=== PATIENT | female | born 1980 | race American Indian/Alaskan Native ===

== ENCOUNTER 2016-10-30 08:49 | Emergency (ER) | payer SELFPAY ==
[2016-10-30] MEDS ORDERED: CATAPRES PO ONE (09:30)
--- NOTE | 2016-10-30 09:36 | Emergency Department Report ---
Entered by KALA RODRIGUEZ, acting as scribe for BERTRAND CHARLES NP. Chief Complaint: Skin/Abscess/Foreign Body Stated Complaint: KNOT IN NAVEL / RASH Time Seen by Provider: 10/30/16 09:26 - HPI History of Present Illness: 36 year old female who is non-toxic appearing and in no acute distress presents with c/o umbilical area "knot" for 2 weeks. PMHx HTN, reports non-compliance with Rx. Denies abdominal pain, n/v/d, chest pain, shortness of breath, headache. - ROS Review of Systems: Reports knot in umbilical area. Denies abdominal pain, n/v/d, chest pain, shortness of breath, headache. - Exam Vital Signs: Vital Signs 10/30/16 09:17 Temperature 98.2 F Pulse Rate 75 Respiratory 20 Rate Blood Pressure 190/118 O2 Sat by Pulse 100 Oximetry Physical Exam: Constitutional: Non toxic appearing, NAD. Cardiovascular: normal rate and rythym with normal S1/S2 sounds. Respiratory: No respiratory distress. Lung sounds clear to auscultation bilaterally. Abdomen: 0.5 cm nodule in right umbilical area with no tenderness. Abdomen is non-distended, soft with no tenderness to palpation in all quadrants. MSE screening note: Focused history and physical exam performed. Due to findings the following was ordered: CBC, serum hGC, UA, Catapres 0.1 mg PO Instructed nurses to follow up with blood pressure in triage. ED Disposition for MSE Condition: Stable This documentation as recorded by the scribe,KALA RODRIGUEZ,accurately reflects the service I personally performed and the decisions made by MELVIN york MARTIN, GERA.
[2016-10-30 09:51] LABS: Basophils % (Auto) 0.5 % (0.0-1.8); Eosinophils % (Auto) 0.8 % (0.0-4.3); Hematocrit 39.6 % (30.3-42.9); Hemoglobin 12.9 gm/dl (10.1-14.3); Mean Corpuscular HGB Conc 32 % (30-34); Mean Corpuscular Hemoglobin 27 pg (28-32); Mean Corpuscular Volume 82 fl (79-97); Platelet Count 177 K/mm3 (140-440); Red Blood Count 4.85 M/mm3 (3.65-5.03); Red Cell Distribution Width 15.2 % (13.2-15.2); White Blood Count 9.7 K/mm3 (4.5-11.0)
--- NOTE | 2016-10-30 11:49 | Emergency Department Report ---
HPI - General Chief Complaint: Skin/Abscess/Foreign Body Time Seen by Provider: 10/30/16 11:33 - HPI HPI: Room 3 The patient is a 36-year-old female presenting with a chief complaint of abdominal "knot" and vaginal itching. The patient states 1 week ago she developed sharp pain and her umbilicus and felt a "knot" in that region. The patient also states for the past 2-3 weeks she has had vaginal itching. Patient denies vaginal discharge, dysuria or hematuria. Patient denies any history of fever Location: [see above] Duration: [see above] Quality: Itching Severity: Moderate Modifying factors: [see above] Context: [see above] Mode of transportation: [not driving] ED Past Medical Hx - Past Medical History Previous Medical History?: Yes Hx Hypertension: Yes Hx Diabetes: Yes Additional medical history: High cholesterol - Surgical History Past Surgical History?: Yes Additional Surgical History: Right arm axillary surgery, Tubaligation - Family History Family history: no significant - Social History Smoking Status: Never Smoker Substance Use Type: None - Medications Home Medications: Home Medications Medication Instructions Recorded Confirmed Last Taken Type Ibuprofen [Motrin 800 MG tab] 800 mg PO Q8HR PRN #20 tablet 10/30/16 Unknown Rx Lisinopril/Hydrochlorothiazide 1 tab PO DAILY 10/30/16 10/30/16 10/30/16 History metFORMIN [Glucophage] 500 mg PO BID 10/30/16 10/30/16 10/29/16 History ED Review of Systems ROS: Stated complaint: KNOT IN NAVEL / RASH Other details as noted in HPI Comment: All other systems reviewed and negative Constitutional: denies: chills, fever Eyes: denies: eye pain, eye discharge, vision change ENT: denies: ear pain, throat pain Respiratory: denies: cough, shortness of breath, wheezing Cardiovascular: denies: chest pain, palpitations Endocrine: no symptoms reported Gastrointestinal: denies: abdominal pain, nausea, vomiting Genitourinary: other (vaginal itching). denies: dysuria, frequency, hematuria, discharge, abnormal menses Musculoskeletal: denies: back pain, joint swelling, arthralgia Skin: denies: rash, lesions Neurological: denies: headache, weakness, paresthesias Psychiatric: denies: anxiety, depression Hematological/Lymphatic: denies: easy bleeding, easy bruising Physical Exam - Physical Exam Vital Signs: Vital Signs 10/30/16 10/30/16 09:17 09:41 Temperature 98.2 F Pulse Rate 75 75 Respiratory 20 Rate Blood Pressure 190/118 190/118 O2 Sat by Pulse 100 Oximetry Physical Exam: GENERAL: The patient is well-developed well-nourished female lying on stretcher not appearing to be in acute distress. [] HEENT: Normocephalic. Atraumatic. Extraocular motions are intact. Patient has moist mucous membranes. NECK: Trachea midline CHEST/LUNGS: Clear to auscultation. There is no respiratory distress noted. HEART/CARDIOVASCULAR: Regular. There is no tachycardia. There is no gallop rub or murmur. ABDOMEN: Abdomen is soft, nontender. Patient has normal bowel sounds. There is no abdominal distention. There is no palpable hernia or "knot" SKIN: There is no rash. There is no edema. There is no diaphoresis. NEURO: The patient is awake, alert, and oriented. The patient is cooperative. The patient has normal speech MUSCULOSKELETAL: There is no evidence of acute injury. GENITOURINARY: ED Course Vital Signs 10/30/16 10/30/16 09:17 09:41 Temperature 98.2 F Pulse Rate 75 75 Respiratory 20 Rate Blood Pressure 190/118 190/118 O2 Sat by Pulse 100 Oximetry ED Medical Decision Making - Lab Data Result diagrams: 10/30/16 09:36 Laboratory Tests 10/30/16 10/30/16 10/30/16 09:36 09:36 Unknown WBC 9.7 RBC 4.85 Hgb 12.9 Hct 39.6 MCV 82 MCH 27 L MCHC 32 RDW 15.2 Plt Count 177 Lymph % (Auto) 33.5 [place] % (Auto) 5.5 Eos % (Auto) 0.8 Baso % (Auto) 0.5 Lymph # 3.2 [place] # 0.5 Eos # 0.1 Baso # 0.0 Seg Neutrophils % 59.7 Seg Neutrophils # 5.8 HCG, Qual Negative Urine Color Straw Urine Turbidity Slightly-cloudy Urine pH 5.0 Ur Specific [place] 1.020 Urine Protein <15 mg/dl Urine Glucose (UA) >=500 Urine Ketones Neg Urine Blood Neg Urine Nitrite Neg Urine Bilirubin Neg Urine Urobilinogen < 2.0 Ur Leukocyte Esterase Sm Urine WBC (Auto) 2.0 Urine RBC (Auto) 1.0 U Epithel Cells (Auto) 9.0 Urine Bacteria (Auto) 1+ Urine Mucus Few Wet prep-no clue cells, yeast or Trichomonas - Differential Diagnosis vaginitis, umbilical hernia Critical care attestation.: If time is entered above; I have spent that time in minutes in the direct care of this critically ill patient, excluding procedure time. ED Disposition Clinical Impression: Vaginal itching Disposition: DISCHARGED TO HOME OR SELFCARE Is pt being admited?: No Does the pt Need Aspirin: No Condition: Stable Additional Instructions: Return to the emergency department immediately should you develop worsening symptoms, fever, inability to tolerate food or liquid or any other concerns. Prescriptions: Ibuprofen [Motrin 800 MG tab] 800 mg PO Q8HR PRN #20 tablet PRN Reason: Pain Referrals: TO WILLIAMSON MD [Staff Physician] - 3-5 Days (St. Merritt is an [employer]. Please follow up with her for further evaluation) ANDREW DEE MD [Staff Physician] - 3-5 Days (Dr. Dee is a general surgeon. Please follow up with him for further evaluation) Time of Disposition: 13:46
[2016-10-30 13:28] LABS: Bacteria,Urine 1+ /HPF (Negative); Bilirubin,Urine NEG (Negative); Blood,Urine NEG (Negative); Ketones,Urine NEG (Negative); Leukocyte Esterase,Urine SM (Negative); Mucus,Urine FEW /HPF; Nitrite,Urine NEG (Negative); Protein,Urine <15 mg/dL mg/dL (Negative); Urobilinogen,Urine < 2.0 mg/dL (<2.0)
[2016-10-30 14:05] VITALS: BP 170/98
== END 2016-10-30 14:05 | disposition home or self-care (01) ==
LOC: ED 08:49
DX: L29.2 Pruritus vulvae (principal); I10 Essential (primary) hypertension; E11.9 Type 2 diabetes mellitus without complications; E78.00 Pure hypercholesterolemia, unspecified; Z98.51 Tubal ligation status
CPT/HCPCS: 36415; 81001; 84703; 85025; 87210; 87591; 99283